=== PATIENT | male | born 1975 | race Caucasian/White ===

== ENCOUNTER 2016-07-06 10:08 | Emergency (ER) | payer OTHER ==
--- NOTE | 2016-07-06 11:28 | DIAGNOSTIC IMAGING REPORT ---
PROCEDURE: XR SHOULDER 2 OR MORE VW-LEFT INDICATION: TRAUMA/INJURY TECHNIQUE: Three views. COMPARISON: Left shoulder x-ray 06/24/2016 FINDINGS: Mild AC and glenohumeral joints degenerative changes. There is moderate caudal angulation of the acromion. New 8 mm soft tissue calcification adjacent to the humeral head consistent with calcific tendonitis. IMPRESSION: 1. Calcific tendonitis 2. Caudal angulation of the acromion which may predispose to impingement 3. Mild degenerative changes of the AC and glenohumeral joints.
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
--- NOTE | 2016-07-06 12:06 | ED ORDER SUMMARY ---
..... Patient: SON TILLEY OrderSheet [facility] VisitID: [id number] [address] [place] [address] 40y, M Registration Date/Time: 07/06/2016 ORDER SHEET Weight: 72.5 kg (stated) Allergies: Sertraline GENERAL ORDERS: Shoulder 2V or more Left Urgent (10:52 07/06/2016 Tim Mark) (Ack 10:53 NHouse ER Tech1) (11:03 LNations ER Tech1) Sling - arm (12:06 07/06/2016 Tim Mark) (12:07 Luis R.N.) MEDICATION ORDERS: Ibuprofen PO 800 mg (NOW) (10:52 07/06/2016 Tim Mark) (10:57 HOSjeramy R.N.) IV FLUIDS: ORDER SHEET NOTES: [Electronically signed by Luís Samano R.N. (12:30 07/06/2016)] [Electronically signed by Harsha Medina Dr. (22:32 07/06/2016)] [Electronically locked/signed by Luís Samano R.N. (12:30 07/06/2016)]
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
--- NOTE | 2016-07-06 12:06 | ED ORDER SUMMARY ---
..... Patient: SON TILLEY OrderSheet [facility] VisitID: [id number] [address] [place] [address] 40y, M Registration Date/Time: 07/06/2016 ORDER SHEET Weight: 72.5 kg (stated) Allergies: Sertraline GENERAL ORDERS: Shoulder 2V or more Left Urgent (10:52 07/06/2016 Tim Mark) (Ack 10:53 NHouse ER Tech1) (11:03 LNations ER Tech1) Sling - arm (12:06 07/06/2016 Tim Mark) (12:07 Luis R.N.) MEDICATION ORDERS: Ibuprofen PO 800 mg (NOW) (10:52 07/06/2016 Tim Mark) (10:57 HOSjeramy R.N.) IV FLUIDS: ORDER SHEET NOTES: [Electronically signed by Luís Samano R.N. (12:30 07/06/2016)] [Electronically signed by Harsha Medina Dr. (22:32 07/06/2016)] [Electronically locked/signed by Luís Samano R.N. (12:30 07/06/2016)]
--- NOTE | 2016-07-06 22:33 | ED MAR SUMMARY ---
..... Medication Administration Record [facility] [address] [place] [address] Patient: SON TILLEY Visit ID: [id number] 40y, M Weight: 72.5 kg Height/Length: 66 in BMI: 25.8 ALLERGIES: Sertraline Given 10:57 07/06/2016 Luís Samano RAriane Medication Administered: IBUPROFEN [PO], Dose: 800 mg Tablets PO. Medication Ordered: Ibuprofen PO 800 mg (NOW).
--- NOTE | 2016-07-06 22:33 | ED MED RECONCILIATION SUMMARY ---
Patient: SON TILLEY Medication Reconciliation Report [facility] VisitID: [id number] [address] [place] [address] 40y, M Registration Date/Time: 07/06/2016 Weight: 72.5 kg Height/Length: 66 in. BMI: 25.8 ALLERGIES: Sertraline The patient's Home Medications are listed below: CONTINUE TAKING THE FOLLOWING MEDICATIONS: Lantus Subcutaneous Latuda Oral The source(s) of the original Home Medication information: Not obtained. The following Medications were given to the patient in the Emergency Department: Ibuprofen [PO] PO 800 mg, administered: 07/06/2016 10:57:00 AM The following Medications were prescribed to the patient: Diclofenac 50 mg tablets: take 1 tablet orally every 8 hours as needed for pain or stiffness. Dispense thirty (30). No refill. -- Harsha Medina Dr.
--- NOTE | 2016-07-06 22:33 | ED MED RECONCILIATION SUMMARY ---
Patient: OSN TILLEY Medication Reconciliation Report [facility] VisitID: [id number] [address] [place] [address] 40y, M Registration Date/Time: 07/06/2016 Weight: 72.5 kg Height/Length: 66 in. BMI: 25.8 ALLERGIES: Sertraline The patient's Home Medications are listed below: CONTINUE TAKING THE FOLLOWING MEDICATIONS: Lantus Subcutaneous Latuda Oral The source(s) of the original Home Medication information: Not obtained. The following Medications were given to the patient in the Emergency Department: Ibuprofen [PO] PO 800 mg, administered: 07/06/2016 10:57:00 AM The following Medications were prescribed to the patient: Diclofenac 50 mg tablets: take 1 tablet orally every 8 hours as needed for pain or stiffness. Dispense thirty (30). No refill. -- Harsha Medina Dr.
--- NOTE | 2016-07-06 22:33 | ED MAR SUMMARY ---
..... Medication Administration Record [facility] [address] [place] [address] Patient: SON TILLEY Visit ID: [id number] 40y, M Weight: 72.5 kg Height/Length: 66 in BMI: 25.8 ALLERGIES: Sertraline Given 10:57 07/06/2016 Luís Samano RAriane Medication Administered: IBUPROFEN [PO], Dose: 800 mg Tablets PO. Medication Ordered: Ibuprofen PO 800 mg (NOW).
--- NOTE | 2016-07-06 22:33 | ED DISCHARGE INSTRUCTIONS ---
Patient: SON TILLEY General Instructions [facility] VisitID: [id number] [address], [place] [address] 40y, M Registration Date/Time: 07/06/2016 Muscle strain of the low back and left rotator cuff at the shoulder. INSTRUCTIONS Apply ice for 20 minutes four times a day. Don't apply ice directly to skin. Wear simple sling until released. Limit use of left arm until released. Your Current Medications: CONTINUE TAKING THE FOLLOWING MEDICATIONS: Lantus Subcutaneous. Latuda Oral. Prescription Medications: Diclofenac 50 mg tablets: take 1 tablet orally every 8 hours as needed for pain or stiffness. Dispense thirty (30). No refill. Follow-up: Screening today revealed the patient's blood pressure to be in the hypertensive range. The patient should follow up with a primary care provider for blood pressure management. Follow-up with: Chris Castro M.D., Orthopedic Surgeon, , [address] , [place], [id number] Follow up in about five days. Call for an appointment. ADDITIONAL INFORMATION Muscle Strain,Extremity A MUSCLE STRAIN is a stretching and tearing of muscle fibers. This causes pain, especially with motion of that muscle. There may also be some swelling and bruising. Home Care: 1) Keep the injured area raised to reduce pain and swelling. This is especially important during the first 48 hours. 2) Make an ice pack (ice cubes in a plastic bag, wrapped in a towel) and apply for 20 minutes every 1-2 hours the first day. You should continue with ice packs 3-4 times a day for the second and third days. Unless otherwise instructed, on the fourth day you may begin hot soaks or hot packs (small towel soaked in hot water) 3-4 times a day while you gently exercise the involved area. 3) You may use acetaminophen (Tylenol) or ibuprofen (Motrin, Advil) to control pain, unless another medicine was prescribed. [ NOTE : If you have chronic liver or kidney disease or ever had a stomach ulcer or GI bleeding, talk with your doctor before using these medicines.] 4) For LEG STRAINS: If CRUTCHES have been recommended, do not bear full weight on the injured leg until you can do so without pain. You may return to sports when you are able to hop and run on the injured leg without pain. Follow Up with your doctor or this facility if you are not improving within the next five days. Get Prompt Medical Attention if any of the following occur: -- Fingers or toes become swollen, cold, blue, numb or tingly -- Pain or swelling increases Back Pain [Acute Or Chronic] Back pain is usually caused by an injury to the muscles or ligaments of the spine. Sometimes the disks that separate each bone in the spine may bulge and cause pain by pressing on a nearby nerve. Back pain may also appear after a sudden twisting/bending force (such as in a car accident), after a simple awkward movement, or lifting something heavy with poor body positioning. In either case, muscle spasm is often present and adds to the pain. Acute back pain usually gets better in one to two weeks. Back pain related to disk disease, arthritis in the spinal joints or spinal stenosis (narrowing of the spinal canal) can become chronic and last for months or years. Unless you had a physical injury (for example, a car accident or fall) X-rays are usually not ordered for the initial evaluation of back pain. If pain continues and does not respond to medical treatment, x-rays and other tests may be performed at a later time. Home Care: You may need to stay in bed the first few days. But, as soon as possible, begin sitting or walking to avoid problems with prolonged bed rest (muscle weakness, worsening back stiffness and pain, blood clots in the legs). When in bed, try to find a position of comfort. A firm mattress is best. Try lying flat on your back with pillows under your knees. You can also try lying on your side with your knees bent up towards your chest and a pillow between your knees. Avoid prolonged sitting. This puts more stress on the lower back than standing or walking. During the first two days after injury, apply an ICE PACK to the painful area for 20 minutes every 2-4 hours. This will reduce swelling and pain. HEAT (hot shower, hot bath or heating pad) works well for muscle spasm. You can start with ice, then switch to heat after two days. Some patients feel best alternating ice and heat treatments. Use the one method that feels the best to you. You may use acetaminophen (Tylenol) or ibuprofen (Motrin, Advil) to control pain, unless another pain medicine was prescribed. [NOTE: If you have chronic liver or kidney disease or ever had a stomach ulcer or GI bleeding, talk with your doctor before using these medicines.] Be aware of safe lifting methods and do not lift anything over 15 pounds until all the pain is gone. Follow Up with your doctor or this facility if your symptoms do not start to improve after one week. Physical therapy may be needed. [NOTE: If X-rays were taken, they will be reviewed by a radiologist. You will be notified of any new findings that may affect your care.] Get Prompt Medical Attention if any of the following occur: Pain becomes worse or spreads to your legs Weakness or numbness in one or both legs Loss of bowel or bladder control Numbness in the groin or genital area Sling A sling is designed to support your arm in a position of rest. It is used for injuries of the hand, forearm, upper arm, and shoulder. A shoulder that is immobilized too long can become stiff and lose range of motion. Follow up with your doctor as advised and do not use the sling longer than directed. Home Use: Leave the sling in place as long as directed by your doctor. Unless told otherwise, you may remove it when bathing, dressing, and when you go to sleep. The sling is adjustable. If it becomes loose, adjust it so that your forearm is horizontal (level with the ground). Your hand should be level with the elbow. You have been given the following additional information: Muscle Strain, Extremity Back Pain (Acute Or Chronic) Sling Limit use of left arm until released. (Electronically signed by Harsha Medina Dr. 07/06/2016 22:32)
== END 2016-07-06 12:31 | disposition home or self-care (01) ==
LOC: ED SRH 10:08
DX: S39.012A Strain of muscle, fascia and tendon of lower back, initial encounter (principal); Z79.899 Other long term (current) drug therapy; S46.012A Strain of muscle(s) and tendon(s) of the rotator cuff of left shoulder, initial encounter; W00.0XXA Fall on same level due to ice and snow, initial encounter; Y93.89 Activity, other specified; Y92.009 Unspecified place in unspecified non-institutional (private) residence as the place of occurrence of the external cause; Y99.8 Other external cause status; E78.00 Pure hypercholesterolemia, unspecified; E11.9 Type 2 diabetes mellitus without complications; Z79.84 Long term (current) use of oral hypoglycemic drugs

== ENCOUNTER 2016-07-17 19:17 | Emergency (ER) | payer OTHER ==
--- NOTE | 2016-07-17 19:32 | ED ORDER SUMMARY ---
..... Patient: SON TILLEY OrderSheet [facility] VisitID: [id number] [address] [place] [address] 40y, M Registration Date/Time: 07/17/2016 ORDER SHEET Weight: 69.3 kg (stated) Allergies: Sertraline GENERAL ORDERS: MEDICATION ORDERS: Clindamycin PO 300 mg (NOW) (19:31 07/17/2016 Amari Sparks) ([facility] 19:33 Anna Adair.N.) (19:36 Anna R.N.) IV FLUIDS: ORDER SHEET NOTES: [Electronically signed by Eliseo Yoon R.N. (20:05 07/17/2016)] [Electronically signed by Bell Mejia P.A.-C (20:38 07/17/2016)] [Electronically locked/signed by Eliseo Yoon R.N. (20:05 07/17/2016)]
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
--- NOTE | 2016-07-17 19:32 | ED ORDER SUMMARY ---
..... Patient: SON TILLEY OrderSheet [facility] VisitID: [id number] [address] [place] [address] 40y, M Registration Date/Time: 07/17/2016 ORDER SHEET Weight: 69.3 kg (stated) Allergies: Sertraline GENERAL ORDERS: MEDICATION ORDERS: Clindamycin PO 300 mg (NOW) (19:31 07/17/2016 Amari Sparks) ([facility] 19:33 Anna Adair.N.) (19:36 Anna R.N.) IV FLUIDS: ORDER SHEET NOTES: [Electronically signed by Eliseo Yoon R.N. (20:05 07/17/2016)] [Electronically signed by Bell Mejia P.A.-C (20:38 07/17/2016)] [Electronically locked/signed by Eliseo Yoon R.N. (20:05 07/17/2016)]
--- NOTE | 2016-07-17 20:38 | ED MED RECONCILIATION SUMMARY ---
Patient: SON TILLEY Medication Reconciliation Report [facility] VisitID: [id number] [address] [place] [address] 40y, M Registration Date/Time: 07/17/2016 Weight: 69.3 kg Height/Length: 66 in. BMI: 24.7 ALLERGIES: Sertraline The patient's Home Medications are listed below: THE FOLLOWING MEDICATIONS NEED TO BE RECONCILED: Lantus Subcutaneous Latuda Oral The source(s) of the original Home Medication information: patient The following Medications were given to the patient in the Emergency Department: Clindamycin [PO] PO 300 mg, administered: 07/17/2016 7:36:00 PM The following Medications were prescribed to the patient: Cleocin 300 mg: take 1 capsule orally every 8 hours for 10 days. No refill. Substitution is permissible. -- Bell Mejia, P.A.-C Motrin 800 mg tablets: take 1 tablet orally every 8 hours for 5 days, as needed for pain. No refill. Substitution is permissible. -- Bell Mejia, P.A.-C
--- NOTE | 2016-07-17 20:38 | ED MAR SUMMARY ---
..... Medication Administration Record [facility] [address] [place] [address] Patient: SON TILLEY Visit ID: [id number] 40y, M Weight: 69.3 kg Height/Length: 66 in BMI: 24.7 ALLERGIES: Sertraline Given 19:36 07/17/2016 Eliseo Yoon RAriane Medication Administered: CLINDAMYCIN [PO], Dose: 300 mg Capsules PO. Medication Ordered: Clindamycin PO 300 mg (NOW).
--- NOTE | 2016-07-17 20:38 | ED MAR SUMMARY ---
..... Medication Administration Record [facility] [address] [address] Patient: SON TILLEY Visit ID: [id number] 40y, M Weight: 69.3 kg Height/Length: 66 in BMI: 24.7 ALLERGIES: Sertraline Given 19:36 07/17/2016 Eliseo Yoon RAriane Medication Administered: CLINDAMYCIN [PO], Dose: 300 mg Capsules PO. Medication Ordered: Clindamycin PO 300 mg (NOW).
--- NOTE | 2016-07-17 20:38 | ED DISCHARGE INSTRUCTIONS ---
Patient: SON TILLEY General Instructions [facility] VisitID: [id number] [address] [place] [address] 40y, M Registration Date/Time: 07/17/2016 Moderate dental pain. INSTRUCTIONS Drink plenty of fluids. Prescription Medications: Cleocin 300 mg: take 1 capsule orally every 8 hours for 10 days. No refill. Substitution is permissible. Motrin 800 mg tablets: take 1 tablet orally every 8 hours for 5 days, as needed for pain. No refill. Substitution is permissible. Follow-up: Follow up with a specialist [facility]. ADDITIONAL INFORMATION Dental Pain A crack or cavity in the tooth, which exposes the sensitive inner area of the tooth can cause tooth pain. An infection in the gum or the root of the tooth can cause pain and swelling. The pain is often made worse by drinking hot or cold fluids, or biting on hard foods. Pain may spread from the tooth to the ear or jaw on the same side. Home Care: Avoid hot and cold foods and liquids since your tooth may be sensitive to temperature changes. If your tooth is chipped or cracked, or if there is a large open cavity, apply OIL OF CLOVES (available [id number]-[id number] in drug stores) directly to the tooth to reduce pain. Some pharmacies carry an [id number] "toothache kit." This contains a paste, which can be applied over the exposed tooth to decrease sensitivity. A cold pack on your jaw over the sore area may help reduce pain. You may use acetaminophen (Tylenol) or ibuprofen (Motrin, Advil) to control pain, unless another medicine was prescribed. [ NOTE: If you have chronic liver or kidney disease or ever had a stomach ulcer or GI bleeding, talk with your doctor before using these medicines.] If you have signs of an infection, an antibiotic will be given. Take it as directed. Follow-Up as directed with a dentist. Your pain may go away with the treatment given. However, only a dentist can fully evaluate and treat the cause and prevent the pain from coming back again. TOOTHACHE IS A SIGN OF DISEASE IN YOUR TOOTH AND SHOULD BE EXAMINED AND TREATED BY A DENTIST. Get Prompt Medical Attention if any of the following occur: Your face becomes swollen or red Pain worsens or spreads to the neck Fever over 100.4 F (38.0 C) Unusual drowsiness; headache or stiff neck; weakness or fainting Pus drains from the tooth Difficulty swallowing or breathing Clindamycin Hydrochloride Oral capsule What is this medicine? CLINDAMYCIN (SHANE Cox) is a lincosamide antibiotic. It is used to treat certain kinds of bacterial infections. It will not work for colds, flu, or other viral infections. How should I use this medicine? Take this medicine by mouth with a full glass of water. Follow the directions on the prescription label. You can take this medicine with food or on an empty stomach. If the medicine upsets your stomach, take it with food. Take your medicine at regular intervals. Do not take your medicine more often than directed. Take all of your medicine as directed even if you think your are better. Do not skip doses or stop your medicine early. Talk to your [employer] regarding the use of this medicine in children. Special care may be needed. What side effects may I notice from receiving this medicine? Side effects that you should report to your doctor or health managed care provider as soon as possible: allergic reactions like skin rash, itching or hives, swelling of the face, lips, or tongue dark urine pain on swallowing redness, blistering, peeling or loosening of the skin, including inside the mouth unusual bleeding or bruising unusually weak or tired yellowing of eyes or skin Side effects that usually do not require medical attention (report to your doctor or health managed care provider if they continue or are bothersome): diarrhea itching in the rectal or genital area joint pain nausea, vomiting stomach pain What may interact with this medicine? chloramphenicol erythromycin kaolin products What if I miss a dose? If you miss a dose, take it as soon as you can. If it is almost time for your next dose, take only that dose. Do not take double or extra doses. Where should I keep my medicine? Keep out of the reach of children. Store at room temperature between 20 and 25 degrees C (68 and 77 degrees F). Throw away any unused medicine after the expiration date. What should I tell my health care provider before I take this medicine? They need to know if you have any of these conditions: kidney disease liver disease stomach problems like colitis an unusual or allergic reaction to clindamycin, lincomycin, or other medicines, foods, dyes like tartrazine or preservatives or trying to get breast-feeding What should I watch for while using this medicine? Tell your doctor or healthcare professional if your symptoms do not start to get better or if they get worse. Do not treat diarrhea with over the counter products. Contact your doctor if you have diarrhea that lasts more than 2 days or if it is severe and watery. Ibuprofen Oral tablet What is this medicine? IBUPROFEN (eye BYOO proe fen) is a non-steroidal anti-inflammatory drug (NSAID). It is used for dental pain, fever, headaches or migraines, osteoarthritis, rheumatoid arthritis, or painful monthly periods. It can also relieve minor aches and pains caused by a cold, flu, or sore throat. How should I use this medicine? Take this medicine by mouth with a glass of water. Follow the directions on the prescription label. Take this medicine with food if your stomach gets upset. Try to not lie down for at least 10 minutes after you take the medicine. Take your medicine at regular intervals. Do not take your medicine more often than directed. A special MedGuide will be given to you by the pharmacist with each prescription and refill. Be sure to read this information carefully each time. Talk to your [employer] regarding the use of this medicine in children. Special care may be needed. What side effects may I notice from receiving this medicine? Side effects that you should report to your doctor or health managed care provider as soon as possible: allergic reactions like skin rash, itching or hives, swelling of the face, lips, or tongue black or bloody stools, blood in the urine or in vomit breathing problems changes in vision chest pain general ill feeling or flu-like symptoms nausea or vomiting redness, blistering, peeling or loosening of the skin, including inside the mouth slurred speech or weakness on one side of the body stomach pain unexplained weight gain or swelling unusually weak or tired yellowing of eyes or skin Side effects that usually do not require medical attention (report to your doctor or health managed care provider if they continue or are bothersome): constipation or diarrhea dizziness gas or heartburn stomach upset What may interact with this medicine? Do not take this medicine with any of the following medications: cidofovir ketorolac methotrexate pemetrexed This medicine may also interact with the following medications: alcohol aspirin diuretics lithium other drugs for inflammation like prednisone warfarin What if I miss a dose? If you miss a dose, take it as soon as you can. If it is almost time for your next dose, take only that dose. Do not take double or extra doses. Where should I keep my medicine? Keep out of the reach of children. Store at room temperature between 15 and 30 degrees C (59 and 86 degrees F). Keep container tightly closed. Throw away any unused medicine after the expiration date. What should I tell my health care provider before I take this medicine? They need to know if you have any of these conditions: asthma cigarette smoker drink more than 3 alcohol containing drinks a day heart disease or circulation problems such as heart failure or leg edema (fluid retention) high blood pressure kidney disease liver disease stomach bleeding or ulcers an unusual or allergic reaction to ibuprofen, aspirin, other NSAIDS, other medicines, foods, dyes, or preservatives or trying to get breast-feeding What should I watch for while using this medicine? Tell your doctor or healthcare professional if your symptoms do not start to get better or if they get worse. This medicine does not prevent heart attack or stroke. In fact, this medicine may increase the chance of a heart attack or stroke. The chance may increase with longer use of this medicine and in people who have heart disease. If you take aspirin to prevent heart attack or stroke, talk with your doctor or health managed care provider. Do not take other medicines that contain aspirin, ibuprofen, or naproxen with this medicine. Side effects such as stomach upset, nausea, or ulcers may be more likely to occur. Many medicines available without a prescription should not be taken with this medicine. This medicine can cause ulcers and bleeding in the stomach and intestines at any time during treatment. Ulcers and bleeding can happen without warning symptoms and can cause . To reduce your risk, do not smoke cigarettes or drink alcohol while you are taking this medicine. You may get drowsy or dizzy. Do not drive, use machinery, or do anything that needs mental alertness until you know how this medicine affects you. Do not stand or sit up quickly, especially if you are an older patient. This reduces the risk of dizzy or fainting spells. This medicine can cause you to bleed more easily. Try to avoid damage to your teeth and gums when you brush or floss your teeth. You have been given the following additional information: Dental Pain Clindamycin Hydrochloride Oral capsule Ibuprofen Oral tablet (Electronically signed by Bell Mejia P.A.-C 07/17/2016 20:38)
--- NOTE | 2016-07-17 20:38 | ED MED RECONCILIATION SUMMARY ---
Patient: SON TILLEY Medication Reconciliation Report [facility] VisitID: [id number] [address] [place] [address] 40y, M Registration Date/Time: 07/17/2016 Weight: 69.3 kg Height/Length: 66 in. BMI: 24.7 ALLERGIES: Sertraline The patient's Home Medications are listed below: THE FOLLOWING MEDICATIONS NEED TO BE RECONCILED: Lantus Subcutaneous Latuda Oral The source(s) of the original Home Medication information: patient The following Medications were given to the patient in the Emergency Department: Clindamycin [PO] PO 300 mg, administered: 07/17/2016 7:36:00 PM The following Medications were prescribed to the patient: Cleocin 300 mg: take 1 capsule orally every 8 hours for 10 days. No refill. Substitution is permissible. -- Bell Mejia, P.A.-C Motrin 800 mg tablets: take 1 tablet orally every 8 hours for 5 days, as needed for pain. No refill. Substitution is permissible. -- Bell Mejia, P.A.-C
--- NOTE | 2016-07-17 20:38 | ED DISCHARGE INSTRUCTIONS ---
Patient: SON TILLEY General Instructions Merged With [facility] VisitID: [id number] [place] [address] 40y, M Registration Date/Time: 07/17/2016 Moderate dental pain. INSTRUCTIONS Drink plenty of fluids. Prescription Medications: Cleocin 300 mg: take 1 capsule orally every 8 hours for 10 days. No refill. Substitution is permissible. Motrin 800 mg tablets: take 1 tablet orally every 8 hours for 5 days, as needed for pain. No refill. Substitution is permissible. Follow-up: Follow up with a specialist [facility]. ADDITIONAL INFORMATION Dental Pain A crack or cavity in the tooth, which exposes the sensitive inner area of the tooth can cause tooth pain. An infection in the gum or the root of the tooth can cause pain and swelling. The pain is often made worse by drinking hot or cold fluids, or biting on hard foods. Pain may spread from the tooth to the ear or jaw on the same side. Home Care: Avoid hot and cold foods and liquids since your tooth may be sensitive to temperature changes. If your tooth is chipped or cracked, or if there is a large open cavity, apply OIL OF CLOVES (available [id number]-[id number] in drug stores) directly to the tooth to reduce pain. Some pharmacies carry an ilno-eao-pcaakun "toothache kit." This contains a paste, which can be applied over the exposed tooth to decrease sensitivity. A cold pack on your jaw over the sore area may help reduce pain. You may use acetaminophen (Tylenol) or ibuprofen (Motrin, Advil) to control pain, unless another medicine was prescribed. [ NOTE: If you have chronic liver or kidney disease or ever had a stomach ulcer or GI bleeding, talk with your doctor before using these medicines.] If you have signs of an infection, an antibiotic will be given. Take it as directed. Follow-Up as directed with a dentist. Your pain may go away with the treatment given. However, only a dentist can fully evaluate and treat the cause and prevent the pain from coming back again. TOOTHACHE IS A SIGN OF DISEASE IN YOUR TOOTH AND SHOULD BE EXAMINED AND TREATED BY A DENTIST. Get Prompt Medical Attention if any of the following occur: Your face becomes swollen or red Pain worsens or spreads to the neck Fever over 100.4 F (38.0 C) Unusual drowsiness; headache or stiff neck; weakness or fainting Pus drains from the tooth Difficulty swallowing or breathing Clindamycin Hydrochloride Oral capsule What is this medicine? CLINDAMYCIN (SHANE Cox) is a lincosamide antibiotic. It is used to treat certain kinds of bacterial infections. It will not work for colds, flu, or other viral infections. How should I use this medicine? Take this medicine by mouth with a full glass of water. Follow the directions on the prescription label. You can take this medicine with food or on an empty stomach. If the medicine upsets your stomach, take it with food. Take your medicine at regular intervals. Do not take your medicine more often than directed. Take all of your medicine as directed even if you think your are better. Do not skip doses or stop your medicine early. Talk to your shipping and receiving coordinator regarding the use of this medicine in children. Special care may be needed. What side effects may I notice from receiving this medicine? Side effects that you should report to your doctor or health care coordination manager as soon as possible: allergic reactions like skin rash, itching or hives, swelling of the face, lips, or tongue dark urine pain on swallowing redness, blistering, peeling or loosening of the skin, including inside the mouth unusual bleeding or bruising unusually weak or tired yellowing of eyes or skin Side effects that usually do not require medical attention (report to your doctor or health care coordination manager if they continue or are bothersome): diarrhea itching in the rectal or genital area joint pain nausea, vomiting stomach pain What may interact with this medicine? chloramphenicol erythromycin kaolin products What if I miss a dose? If you miss a dose, take it as soon as you can. If it is almost time for your next dose, take only that dose. Do not take double or extra doses. Where should I keep my medicine? Keep out of the reach of children. Store at room temperature between 20 and 25 degrees C (68 and 77 degrees F). Throw away any unused medicine after the expiration date. What should I tell my health care provider before I take this medicine? They need to know if you have any of these conditions: kidney disease liver disease stomach problems like colitis an unusual or allergic reaction to clindamycin, lincomycin, or other medicines, foods, dyes like tartrazine or preservatives or trying to get breast-feeding What should I watch for while using this medicine? Tell your doctor or healthcare professional if your symptoms do not start to get better or if they get worse. Do not treat diarrhea with over the counter products. Contact your doctor if you have diarrhea that lasts more than 2 days or if it is severe and watery. Ibuprofen Oral tablet What is this medicine? IBUPROFEN (eye BYOO proe fen) is a non-steroidal anti-inflammatory drug (NSAID). It is used for dental pain, fever, headaches or migraines, osteoarthritis, rheumatoid arthritis, or painful monthly periods. It can also relieve minor aches and pains caused by a cold, flu, or sore throat. How should I use this medicine? Take this medicine by mouth with a glass of water. Follow the directions on the prescription label. Take this medicine with food if your stomach gets upset. Try to not lie down for at least 10 minutes after you take the medicine. Take your medicine at regular intervals. Do not take your medicine more often than directed. A special MedGuide will be given to you by the pharmacist with each prescription and refill. Be sure to read this information carefully each time. Talk to your shipping and receiving coordinator regarding the use of this medicine in children. Special care may be needed. What side effects may I notice from receiving this medicine? Side effects that you should report to your doctor or health care coordination manager as soon as possible: allergic reactions like skin rash, itching or hives, swelling of the face, lips, or tongue black or bloody stools, blood in the urine or in vomit breathing problems changes in vision chest pain general ill feeling or flu-like symptoms nausea or vomiting redness, blistering, peeling or loosening of the skin, including inside the mouth slurred speech or weakness on one side of the body stomach pain unexplained weight gain or swelling unusually weak or tired yellowing of eyes or skin Side effects that usually do not require medical attention (report to your doctor or health care coordination manager if they continue or are bothersome): constipation or diarrhea dizziness gas or heartburn stomach upset What may interact with this medicine? Do not take this medicine with any of the following medications: cidofovir ketorolac methotrexate pemetrexed This medicine may also interact with the following medications: alcohol aspirin diuretics lithium other drugs for inflammation like prednisone warfarin What if I miss a dose? If you miss a dose, take it as soon as you can. If it is almost time for your next dose, take only that dose. Do not take double or extra doses. Where should I keep my medicine? Keep out of the reach of children. Store at room temperature between 15 and 30 degrees C (59 and 86 degrees F). Keep container tightly closed. Throw away any unused medicine after the expiration date. What should I tell my health care provider before I take this medicine? They need to know if you have any of these conditions: asthma cigarette smoker drink more than 3 alcohol containing drinks a day heart disease or circulation problems such as heart failure or leg edema (fluid retention) high blood pressure kidney disease liver disease stomach bleeding or ulcers an unusual or allergic reaction to ibuprofen, aspirin, other NSAIDS, other medicines, foods, dyes, or preservatives or trying to get breast-feeding What should I watch for while using this medicine? Tell your doctor or healthcare professional if your symptoms do not start to get better or if they get worse. This medicine does not prevent heart attack or stroke. In fact, this medicine may increase the chance of a heart attack or stroke. The chance may increase with longer use of this medicine and in people who have heart disease. If you take aspirin to prevent heart attack or stroke, talk with your doctor or health care coordination manager. Do not take other medicines that contain aspirin, ibuprofen, or naproxen with this medicine. Side effects such as stomach upset, nausea, or ulcers may be more likely to occur. Many medicines available without a prescription should not be taken with this medicine. This medicine can cause ulcers and bleeding in the stomach and intestines at any time during treatment. Ulcers and bleeding can happen without warning symptoms and can cause . To reduce your risk, do not smoke cigarettes or drink alcohol while you are taking this medicine. You may get drowsy or dizzy. Do not drive, use machinery, or do anything that needs mental alertness until you know how this medicine affects you. Do not stand or sit up quickly, especially if you are an older patient. This reduces the risk of dizzy or fainting spells. This medicine can cause you to bleed more easily. Try to avoid damage to your teeth and gums when you brush or floss your teeth. You have been given the following additional information: Dental Pain Clindamycin Hydrochloride Oral capsule Ibuprofen Oral tablet (Electronically signed by Bell Mejia P.A.-C 07/17/2016 20:38)
== END 2016-07-17 19:56 | disposition home or self-care (01) ==
LOC: ED SRH 19:17
DX: K08.89 Other specified disorders of teeth and supporting structures (principal); E11.9 Type 2 diabetes mellitus without complications; Z79.4 Long term (current) use of insulin; Z88.8 Allergy status to other drugs, medicaments and biological substances

== ENCOUNTER 2016-08-03 02:05 | Emergency (ER) | payer OTHER ==
--- NOTE | 2016-08-03 03:13 | ED ORDER SUMMARY ---
..... Patient: SON TILLEY OrderSheet [facility] VisitID: [id number] [place] [address] 40y, M Registration Date/Time: 08/03/2016 ORDER SHEET Weight: 67.5 kg (stated) Allergies: Sertraline GENERAL ORDERS: Urine Drug Screen Urgent (02:18 08/03/2016 Magaly MARQUEZ) (Ack 2:23 CHagerty ER Pharmacists) (3:23 Mandy R.NJayson) (Cancelled: Patient Refusal3:23 Mandy Mariee) Breathalyzer (02:18 08/03/2016 Magaly MARQUEZ) (2:23 CHagdelfino ER Pharmacists) Chest 2V Urgent (02:18 08/03/2016 Magaly MARQUEZ) (Ack 2:23 [facility]ag[facility]elf[facility] Pharmacists) (2:26 Magaly MARQUEZ) (Cancelled: Other2:26 Magaly MARQUEZ) Ribs Unilat w PA Chest Right Urgent (02:26 08/03/2016 Magaly MARQUEZ) (Ack 2:30 [facility] Pharmacists) (2:44 GUnger) MEDICATION ORDERS: Motrin PO 600 mg (NOW) (03:12 08/03/2016 Magaly MARQUEZ) (3:23 Mandy UptonNJayson) IV FLUIDS: ORDER SHEET NOTES: [Electronically signed by Phani De R.N. (03:24 08/03/2016)] [Electronically signed by Nam Ferraro MD (11:56 08/11/2016)] [Electronically locked/signed by Phani De R.N. (03:24 08/03/2016)]
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
--- NOTE | 2016-08-03 03:13 | ED ORDER SUMMARY ---
..... Patient: SON TILLEY OrderSheet [facility] VisitID: [id number] [place] [address] 40y, M Registration Date/Time: 08/03/2016 ORDER SHEET Weight: 67.5 kg (stated) Allergies: Sertraline GENERAL ORDERS: Urine Drug Screen Urgent (02:18 08/03/2016 Magaly MARQUEZ) (Ack 2:23 CHagerty ER Burial Agent) (3:23 Mandy R.NJayson) (Cancelled: Patient Refusal3:23 Mandy Mariee) Breathalyzer (02:18 08/03/2016 Magaly MARQUEZ) (2:23 CHagdelfino ER Burial Agent) Chest 2V Urgent (02:18 08/03/2016 Magaly MARQUEZ) (Ack 2:23 CHagdelfino ER Burial Agent) (2:26 Magaly MARQUEZ) (Cancelled: Other2:26 Magaly MARQUEZ) Ribs Unilat w PA Chest Right Urgent (02:26 08/03/2016 Magaly MARQUEZ) (Ack 2:30 CHagerty ER Burial Agent) (2:44 GUnger) MEDICATION ORDERS: Motrin PO 600 mg (NOW) (03:12 08/03/2016 Magaly MARQUEZ) (3:23 Mandy UptonNJayson) IV FLUIDS: ORDER SHEET NOTES: [Electronically signed by Phani De R.N. (03:24 08/03/2016)] [Electronically signed by Nam Ferraro MD (11:56 08/11/2016)] [Electronically locked/signed by Phani De R.N. (03:24 08/03/2016)]
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
--- NOTE | 2016-08-11 11:57 | ED MAR SUMMARY ---
..... Medication Administration Record [facility] [address] [place] [address] Patient: SON TILLEY Visit ID: [id number] 40y, M Weight: 67.5 kg Height/Length: 66 in BMI: 24 ALLERGIES: Sertraline Given 03:23 08/03/2016 Phani De R.N. Medication Administered: MOTRIN [PO], Dose: 600 mg PO. Medication Ordered: Motrin PO 600 mg (NOW).
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
--- NOTE | 2016-08-11 11:57 | ED MAR SUMMARY ---
..... Medication Administration Record [facility] [address] [place] [address] Patient: SON TILLEY Visit ID: [id number] 40y, M Weight: 67.5 kg Height/Length: 66 in BMI: 24 ALLERGIES: Sertraline Given 03:23 08/03/2016 Phani De R.N. Medication Administered: MOTRIN [PO], Dose: 600 mg PO. Medication Ordered: Motrin PO 600 mg (NOW).
--- NOTE | 2016-08-11 11:57 | ED MED RECONCILIATION SUMMARY ---
Patient: SON TILLEY Medication Reconciliation Report [facility] VisitID: [id number] [place] [address] 40y, M Registration Date/Time: 08/03/2016 Weight: 67.5 kg Height/Length: 66 in. BMI: 24.0 ALLERGIES: Sertraline The patient's Home Medications are listed below: CONTINUE TAKING THE FOLLOWING MEDICATIONS: Lantus Subcutaneous Latuda Oral The source(s) of the original Home Medication information: Not obtained. The following Medications were given to the patient in the Emergency Department: Motrin [PO] PO 600 mg, administered: 08/03/2016 3:23:00 AM The following Medications were prescribed to the patient: Motrin (available over the counter): take according to label instructions. -- Nam Ferraro MD
== END 2016-08-03 03:22 | disposition home or self-care (01) ==
LOC: ED SRH 02:05
DX: S20.219A Contusion of unspecified front wall of thorax, initial encounter (principal); Y04.0XXA Assault by unarmed brawl or fight, initial encounter; Y93.89 Activity, other specified; Y99.8 Other external cause status; Y92.009 Unspecified place in unspecified non-institutional (private) residence as the place of occurrence of the external cause; E11.9 Type 2 diabetes mellitus without complications; F17.210 Nicotine dependence, cigarettes, uncomplicated; Z79.4 Long term (current) use of insulin; Z88.8 Allergy status to other drugs, medicaments and biological substances